=== PATIENT | female | born 1995 | race African-American/Black ===

== ENCOUNTER 2019-10-26 07:55 | Observation (INO) | payer OTHER ==
[~2019-10-26] VITALS: Ht 157.5 cm; Wt 88.9 kg
[2019-10-26] MEDS: LACTATED RINGERS 1,000 ML IV SCH ×2 (08:07→16:04)
[2019-10-26] MEDS ORDERED: APAP/BUTAL/CAFF 325/50/40 MG 1 TAB PO PRN (09:05)
[2019-10-26 10:20] VITALS: BP 124/79
[2019-10-26] MEDS ORDERED: PANTOPRAZOLE 40 MG TABEC PO SCH ×2 (11:22→21:00)
[2019-10-26 12:26] LABS: BASOPHILS % (AUTO) 0.3 % (0.0-2.0); EOSINOPHILS # (AUTO) 0.4 K/uL (0-0.4); EOSINOPHILS % (AUTO) 3.7 % (0.0-4.0); HEMATOCRIT 31.1 % (36-48); HEMOGLOBIN 9.7 g/dL (12.0-16.0); LYMPHOCYTES # (AUTO) 3.3 K/uL (2.5-16.5); LYMPHOCYTES % (AUTO) 27.3 % (20.5-51.1); MEAN CORPUSCULAR HEMOGLOBIN 25 pg (27-31); MEAN CORPUSCULAR HGB CONC 31 g/dL (33-37); MEAN CORPUSCULAR VOLUME 78.2 fL (80-94); MONOCYTES # (AUTO) 0.7 K/uL (0.8-1.0); MONOCYTES % (AUTO) 5.7 % (1.7-9.3); NEUTROPHILS # (AUTO) 7.6 K/uL (1.8-7.7); PLATELET COUNT (AUTO) 321 K/uL (140-450); RED BLOOD CELL COUNT(AUTO) 3.97 MIL/uL (4.20-5.40); RED CELL DISTRIBUTION WIDTH 18.8 % (11.6-13.7)
[2019-10-26 12:48] LABS: ANION GAP 12.8 (8-16); CREATININE 0.6 mg/dL (0.6-1.3); POTASSIUM 3.8 mmol/L (3.5-5.1); TOTAL BILIRUBIN 0.2 mg/dL (0.0-1.0)
[2019-10-26 12:49] LABS: ALBUMIN 2.6 g/dL (3.4-5.0)
[2019-10-26 13:12] LABS: APPEARANCE,URINE HAZY (CLEAR); BILIRUBIN,URINE NEGATIVE (NEGATIVE); BLOOD, URINE NEGATIVE (NEGATIVE); COLOR,URINE YELLOW (YELLOW); LEUKOCYTE ESTERASE ,URINE TRACE (NEGATIVE); NITRITE, URINE POSITIVE (NEGATIVE); UGLUCOSE NEGATIVE (NEGATIVE)
[2019-10-26 13:18] LABS: RBC,URINE NONE SEEN /HPF (0-5)
[2019-10-26 14:25] LABS: BARBITURATE, URINE NEGATIVE ng/ml (NEG <=200); BENZODIAZEPINE, URINE NEGATIVE ng/mL (NEG <=200); CANNABINOID, URINE NEGATIVE ng/mL (NEG <=50); COCAINE, URINE POSITIVE ng/mL (NEG <=300); OPIATE, URINE NEGATIVE ng/mL (NEG <=2000); PHENCYCLIDINE SCREEN,URINE NEGATIVE ng/mL (NEG <=25)
[2019-10-26] MEDS ORDERED: PREN-380 PO (17:05)
[2019-10-26] MEDS ORDERED: FERR-252 PO (17:05)
== END 2019-10-26 17:15 | disposition home or self-care (01) ==
LOC: MLD 07:55
PROVIDERS: ADMIT Obstetrics & Gynecology; ATTEND Obstetrics & Gynecology
DX: O26.892 Other specified pregnancy related conditions, second trimester (principal); R10.9 Unspecified abdominal pain; O99.212 Obesity complicating pregnancy, second trimester; O23.42 Unspecified infection of urinary tract in pregnancy, second trimester; O98.312 Other infections with a predominantly sexual mode of transmission complicating pregnancy, second trimester; O99.322 Drug use complicating pregnancy, second trimester; O21.2 Late vomiting of pregnancy; O24.419 Gestational diabetes mellitus in pregnancy, unspecified control; O99.012 Anemia complicating pregnancy, second trimester; F14.10 Cocaine abuse, uncomplicated; Z3A.23 23 weeks gestation of pregnancy; Z79.899 Other long term (current) drug therapy
CPT/HCPCS: 36415; 76805; 80053; 80305; 81001; 85025; 87086; 96361; 96365; G0378; J0696; J7060; J7120; Q0092

== ENCOUNTER 2019-12-02 23:40 | Observation (INO) | payer OTHER ==
[~2019-12-02] VITALS: Ht 157.5 cm; Wt 93.0 kg
[2019-12-02 22:25] VITALS: BP 126/58
[~2019-12-02 23:40] MED LIST: FERR-252 PO; PREN-380 PO
[2019-12-03] MEDS ORDERED: LACTATED RINGERS 1,000 ML IV SCH (00:15)
[2019-12-03] MEDS ORDERED: BUTORPHANOL 2 MG/ML VIAL IVP PRN (00:15)
[2019-12-03 00:35] LABS: BASOPHILS % (AUTO) 0.2 % (0.0-2.0); EOSINOPHILS # (AUTO) 0.4 K/uL (0-0.4); HEMATOCRIT 31.3 % (36-48); HEMOGLOBIN 9.7 g/dL (12.0-16.0); LYMPHOCYTES # (AUTO) 3.1 K/uL (2.5-16.5); LYMPHOCYTES % (AUTO) 21.5 % (20.5-51.1); MEAN CORPUSCULAR HEMOGLOBIN 24 pg (27-31); MEAN CORPUSCULAR HGB CONC 31 g/dL (33-37); MEAN CORPUSCULAR VOLUME 78.3 fL (80-94); MONOCYTES # (AUTO) 1.1 K/uL (0.8-1.0); MONOCYTES % (AUTO) 7.4 % (1.7-9.3); NEUTROPHILS # (AUTO) 9.8 K/uL (1.8-7.7); NEUTROPHILS % (AUTO) 67.9 % (42.2-75.2); PLATELET COUNT (AUTO) 291 K/uL (140-450); RED CELL DISTRIBUTION WIDTH 16.7 % (11.6-13.7); WHITE BLOOD COUNT (AUTO) 14.5 K/uL (4.8-10.8)
[2019-12-03 00:49] LABS: ALBUMIN 2.8 g/dL (3.4-5.0); ANION GAP 8.3 (8-16); CARBON DIOXIDE 28.6 mmol/L (21-32); CREATININE 0.7 mg/dL (0.6-1.3); POTASSIUM 3.9 mmol/L (3.5-5.1); TOTAL BILIRUBIN 0.1 mg/dL (0.0-1.0)
[2019-12-03 03:47] LABS: APPEARANCE,URINE CLEAR (CLEAR); BILIRUBIN,URINE NEGATIVE (NEGATIVE); BLOOD, URINE NEGATIVE (NEGATIVE); COLOR,URINE YELLOW (YELLOW); LEUKOCYTE ESTERASE ,URINE 1+ (NEGATIVE); NITRITE, URINE NEGATIVE (NEGATIVE); UGLUCOSE NEGATIVE (NEGATIVE)
[2019-12-03 05:08] LABS: RBC,URINE 0-5 /HPF (0-5)
[2019-12-03 06:27] LABS: BENZODIAZEPINE, URINE NEG. ng/mL (NEG <=200); CANNABINOID, URINE POS. ng/mL (NEG <=50); COCAINE, URINE NEG. ng/mL (NEG <=300); OPIATE, URINE NEG. ng/mL (NEG <=2000); PHENCYCLIDINE SCREEN,URINE NEG. ng/mL (NEG <=25)
[2019-12-03 06:33] LABS: BARBITURATE, URINE NEG. ng/ml (NEG <=200)
[2019-12-03] MEDS ORDERED: ONDANSETRON 4 MG/2 ML VIAL IVP PRN (06:40)
[2019-12-03] MEDS ORDERED: ACETAMINOPHEN 325 MG TAB PO PRN (06:45)
[2019-12-03] MEDS ORDERED: cefTRIAXone 1,000 MG VIAL ONE (08:10)
[2019-12-03] MEDS ORDERED: oxyCODONE/APAP 5/325 MG 1 TAB TAB PO PRN ×2 (09:15→09:25)
[2019-12-03] MEDS ORDERED: oxyCODONE/APAP 5/325 MG 1 TAB TAB ONE (09:18)
[2019-12-03] MEDS: oxyCODONE/APAP 5/325 MG 1 TAB TAB PO PRN ×2 (15:47→23:17)
--- NOTE | 2019-12-03 16:08 | NUR ---
PATIENT HAS BEEN SCREENED AND CATEGORIZED LOW NUTRITION RISK. PATIENT WILL BE SEEN WITHIN 7 DAYS OF ADMISSION. 12/09/[address]
[2019-12-03] MEDS: NACL 0.9% 1,000 ML IV SCH (18:32)
[2019-12-03] MEDS: ONDANSETRON 8 MG in NACL 0.9% 50 ML IVP PRN (18:42)
[2019-12-04] MEDS: NACL 0.9% 1,000 ML IV SCH ×4 (03:47→20:25)
[2019-12-04 07:06] LABS: BASOPHILS # (AUTO) 0.1 K/uL (0.00-0.22); BASOPHILS % (AUTO) 0.9 % (0.0-2.0); EOSINOPHILS # (AUTO) 0.4 K/uL (0-0.4); HEMATOCRIT 29.4 % (36-48); HEMOGLOBIN 9.3 g/dL (12.0-16.0); LYMPHOCYTES # (AUTO) 2.9 K/uL (2.5-16.5); LYMPHOCYTES % (AUTO) 27.8 % (20.5-51.1); MEAN CORPUSCULAR HEMOGLOBIN 25 pg (27-31); MEAN CORPUSCULAR HGB CONC 32 g/dL (33-37); MONOCYTES # (AUTO) 0.6 K/uL (0.8-1.0); MONOCYTES % (AUTO) 5.7 % (1.7-9.3); NEUTROPHILS # (AUTO) 6.4 K/uL (1.8-7.7); NEUTROPHILS % (AUTO) 61.6 % (42.2-75.2); PLATELET COUNT (AUTO) 224 K/uL (140-450); RED BLOOD CELL COUNT(AUTO) 3.73 MIL/uL (4.20-5.40); RED CELL DISTRIBUTION WIDTH 17.2 % (11.6-13.7); WHITE BLOOD COUNT (AUTO) 10.4 K/uL (4.8-10.8)
[2019-12-04] MEDS: oxyCODONE/APAP 5/325 MG 1 TAB TAB PO PRN (17:06)
[2019-12-04] MEDS: ONDANSETRON 8 MG in NACL 0.9% 50 ML IVP PRN (21:11)
== END 2019-12-04 23:00 | disposition home or self-care (01) ==
LOC: MLD 23:40
PROVIDERS: ADMIT Obstetrics & Gynecology; ATTEND Obstetrics & Gynecology
DX: O26.893 Other specified pregnancy related conditions, third trimester (principal); R10.32 Left lower quadrant pain; R51 Headache; O99.89 Other specified diseases and conditions complicating pregnancy, childbirth and the puerperium; M54.5 Low back pain; O99.323 Drug use complicating pregnancy, third trimester; F12.90 Cannabis use, unspecified, uncomplicated; Z02.89 Encounter for other administrative examinations; Z87.448 Personal history of other diseases of urinary system; Z86.59 Personal history of other mental and behavioral disorders; Z3A.28 28 weeks gestation of pregnancy
CPT/HCPCS: 36415; 76770; 76805; 80053; 80305; 81001; 85025; 85384; 87086; 96365; 96366; 96375; 96376; C1758; G0378; J0595; J0696; J2405; J7060; Q0092; J7120

== ENCOUNTER 2021-07-09 12:09 | Observation (INO) | payer OTHER, SELFPAY ==
[~2021-07-09] VITALS: Ht 157.5 cm; Wt 96.2 kg
[~2021-07-09 12:09] MED LIST changes: +PREN-371 PO; -PREN-380 PO
[2021-07-09] MEDS ORDERED: METHYLERGONOVINE 0.2 MG/ML AMP IM PRN (12:35)
[2021-07-09] MEDS ORDERED: LACTATED RINGERS 500 ML IV SCH (12:35)
[2021-07-09] MEDS: LACTATED RINGERS 1,000 ML IV SCH ×2 (12:35→20:33)
[2021-07-09] MEDS ORDERED: CARBOPROST 250 MCG/ML AMP IM PRN (12:35)
[2021-07-09] MEDS: ONDANSETRON 4 MG/2 ML VIAL IVP PRN ×2 (13:15→20:29)
[2021-07-09] MEDS: MORPHINE SULFATE 10 MG/ML VIAL IVP PRN ×2 (13:17→20:31)
[2021-07-09 13:21] LABS: BASOPHILS % (AUTO) 0.2 % (0.0-2.0); EOSINOPHILS # (AUTO) 0.2 K/uL (0-0.4); EOSINOPHILS % (AUTO) 2.1 % (0.0-4.0); HEMATOCRIT 30.9 % (36-48); HEMOGLOBIN 9.7 g/dL (12.0-16.0); LYMPHOCYTES # (AUTO) 2.3 K/uL (2.5-16.5); LYMPHOCYTES % (AUTO) 20.9 % (20.5-51.1); MEAN CORPUSCULAR HEMOGLOBIN 24 pg (27-31); MEAN CORPUSCULAR HGB CONC 31 g/dL (33-37); MEAN CORPUSCULAR VOLUME 74.8 fL (80-94); MONOCYTES # (AUTO) 0.8 K/uL (0.8-1.0); MONOCYTES % (AUTO) 6.8 % (1.7-9.3); NEUTROPHILS # (AUTO) 7.7 K/uL (1.8-7.7); PLATELET COUNT (AUTO) 318 K/uL (140-450); RED BLOOD CELL COUNT(AUTO) 4.13 MIL/uL (4.20-5.40)
[2021-07-09 13:22] LABS: APPEARANCE,URINE HAZY (CLEAR); BILIRUBIN,URINE NEGATIVE (NEGATIVE); BLOOD, URINE NEGATIVE (NEGATIVE); COLOR,URINE YELLOW (YELLOW); LEUKOCYTE ESTERASE ,URINE 1+ (NEGATIVE); NITRITE, URINE NEGATIVE (NEGATIVE); PH,URINE 5.5 (5.0-9.0); UGLUCOSE NEGATIVE (NEGATIVE)
[2021-07-09 13:41] LABS: ALBUMIN 2.5 g/dL (3.4-5.0); ANION GAP 15.7 (8-16); CARBON DIOXIDE 23.3 mmol/L (21-32); CREATININE 0.6 mg/dL (0.6-1.3); TOTAL BILIRUBIN 0.2 mg/dL (0.0-1.0)
[2021-07-09 13:48] LABS: RBC,URINE 0-5 /HPF (0-5)
[2021-07-09 13:51] LABS: BARBITURATE, URINE NEGATIVE ng/ml (NEG <=200); BENZODIAZEPINE, URINE NEGATIVE ng/mL (NEG <=200); CANNABINOID, URINE NEGATIVE ng/mL (NEG <=50); COCAINE, URINE NEGATIVE ng/mL (NEG <=300); OPIATE, URINE NEGATIVE ng/mL (NEG <=2000); PHENCYCLIDINE SCREEN,URINE NEGATIVE ng/mL (NEG <=25)
[2021-07-09] MEDS ORDERED: NALBUPHINE 10 MG/ML AMP IVP PRN (16:00)
[2021-07-09] MEDS ORDERED: NALBUPHINE 10 MG/ML AMP ONE (16:01)
[2021-07-09] MEDS ORDERED: diphenhydrAMINE 50 MG/ML VIAL ONE (16:35)
[2021-07-09] MEDS ORDERED: diphenhydrAMINE 50 MG/ML VIAL IVP SCH (16:37)
[2021-07-09 20:31] VITALS: BP 115/83
== END 2021-07-09 22:40 | disposition home or self-care (01) ==
LOC: MLD 12:09
PROVIDERS: ADMIT Obstetrics & Gynecology; ATTEND Obstetrics & Gynecology
DX: O26.893 Other specified pregnancy related conditions, third trimester (principal); R10.9 Unspecified abdominal pain; Z20.822 Contact with and (suspected) exposure to COVID-19; O13.3 Gestational [pregnancy-induced] hypertension without significant proteinuria, third trimester; O99.013 Anemia complicating pregnancy, third trimester; D64.9 Anemia, unspecified; Z3A.38 38 weeks gestation of pregnancy; Z79.899 Other long term (current) drug therapy
CPT/HCPCS: 36415; 59025; 76805; 80053; 80305; 81001; 85025; 85384; 86592; 86886; 86900; 86901; 87086; 87653-90; 96361; 96374; 96375; 96376; C1758; G0378; G0379; J1200; J2270; J2300; J2405; Q0092

== ENCOUNTER 2021-07-10 13:23 | Inpatient (IN) | payer OTHER ==
[~2021-07-10] VITALS: Ht 157.5 cm; Wt 98.4 kg
[2021-07-10] MEDS ORDERED: ONDANSETRON 4 MG/2 ML VIAL IVP PRN (14:00)
[2021-07-10] MEDS ORDERED: OXYTOCIN 20 UNITS in LACTATED RINGERS 1,000 ML IV SCH (14:00)
[2021-07-10] MEDS: LACTATED RINGERS 1,000 ML IV SCH ×2 (14:30→15:51)
[2021-07-10 14:33] VITALS: BP 125/57
[2021-07-10] MEDS ORDERED: OXYTOCIN 20 UNITS/LR PREMIX 1,000 ML IV ONE (15:15)
[2021-07-10 15:26] LABS: APPEARANCE,URINE HAZY (CLEAR); BILIRUBIN,URINE NEGATIVE (NEGATIVE); BLOOD, URINE NEGATIVE (NEGATIVE); COLOR,URINE YELLOW (YELLOW); LEUKOCYTE ESTERASE ,URINE 1+ (NEGATIVE); NITRITE, URINE NEGATIVE (NEGATIVE); PH,URINE 5.5 (5.0-9.0); UGLUCOSE NEGATIVE (NEGATIVE)
[2021-07-10 15:38] LABS: BARBITURATE, URINE NEGATIVE ng/ml (NEG <=200); BENZODIAZEPINE, URINE NEGATIVE ng/mL (NEG <=200); CANNABINOID, URINE NEGATIVE ng/mL (NEG <=50); COCAINE, URINE POSITIVE ng/mL (NEG <=300); OPIATE, URINE POSITIVE ng/mL (NEG <=2000); PHENCYCLIDINE SCREEN,URINE NEGATIVE ng/mL (NEG <=25)
[2021-07-10] MEDS ORDERED: ROPIVACAINE 0.2%/NS PREMIX 200 ML EPI ONE (15:38)
[2021-07-10 15:49] LABS: RBC,URINE 0-5 /HPF (0-5); WBC,URINE 16-25 (MOD) /HPF (0-5)
[2021-07-10 15:53] LABS: URINE TOTAL PROTEIN 37.6 mg/dL (0-12)
[2021-07-10] MEDS ORDERED: ACETAMINOPHEN 325 MG TAB ONE (16:23)
[2021-07-10] MEDS: ACETAMINOPHEN 325 MG TAB PO PRN (16:29)
[2021-07-10 18:56] LABS: BASOPHILS % (AUTO) 0.1 % (0.0-2.0); EOSINOPHILS # (AUTO) 0.2 K/uL (0-0.4); EOSINOPHILS % (AUTO) 1.8 % (0.0-4.0); HEMATOCRIT 28.8 % (36-48); HEMOGLOBIN 8.9 g/dL (12.0-16.0); MEAN CORPUSCULAR HEMOGLOBIN 23 pg (27-31); MEAN CORPUSCULAR HGB CONC 31 g/dL (33-37); MEAN CORPUSCULAR VOLUME 74.2 fL (80-94); MONOCYTES # (AUTO) 0.8 K/uL (0.8-1.0); NEUTROPHILS # (AUTO) 8.1 K/uL (1.8-7.7); NEUTROPHILS % (AUTO) 73.1 % (42.2-75.2); PLATELET COUNT (AUTO) 278 K/uL (140-450); RED BLOOD CELL COUNT(AUTO) 3.88 MIL/uL (4.20-5.40); RED CELL DISTRIBUTION WIDTH 18.7 % (11.6-13.7)
[2021-07-10 19:08] LABS: ALBUMIN 2.2 g/dL (3.4-5.0); ANION GAP 12.2 (8-16); CARBON DIOXIDE 23.9 mmol/L (21-32); CREATININE 0.7 mg/dL (0.6-1.3); POTASSIUM 4.1 mmol/L (3.5-5.1); TOTAL BILIRUBIN 0.1 mg/dL (0.0-1.0)
[2021-07-11] MEDS: LACTATED RINGERS 1,000 ML IV SCH ×2 (00:17→10:04)
[2021-07-11] MEDS: ACETAMINOPHEN 325 MG TAB PO PRN ×2 (03:00→08:44)
--- NOTE | 2021-07-11 06:35 | NUR ---
PATIENT HAS BEEN SCREENED AND CATEGORIZED LOW NUTRITION RISK. PATIENT WILL BE SEEN WITHIN 7 DAYS OF ADMISSION. 07/17/[address]
[2021-07-11] MEDS ORDERED: ROPIVACAINE 0.2%/NS PREMIX 200 ML EPI ONE (09:24)
[2021-07-11] MEDS ORDERED: MORPHINE SULFATE 10 MG/ML VIAL ONE (11:31)
[2021-07-11 11:35] VITALS: BP 139/86
[2021-07-11] MEDS ORDERED: MORPHINE SULFATE 10 MG/ML VIAL IVP PRN (11:40)
[2021-07-11] MEDS ORDERED: IBUPROFEN 800 MG TAB ONE (15:12)
[2021-07-11] MEDS ORDERED: METHYLERGONOVINE 0.2 MG/ML AMP IM PRN (15:15)
[2021-07-11] MEDS ORDERED: IBUPROFEN 800 MG TAB PO PRN (15:15)
[2021-07-11] MEDS ORDERED: OXYTOCIN 10 UNITS/ML VIAL IM PRN (15:15)
[2021-07-11] MEDS ORDERED: BENZOCAINE/MENTHOL 20%-0.5% 60 GM CAN TP PRN (15:15)
[2021-07-11] MEDS ORDERED: METHYLERGONOVINE 0.2 MG TAB PO PRN (15:15)
[2021-07-11] MEDS ORDERED: ACETAMINOPHEN EXTRA STRENGTH 500 MG TAB ONE (16:24)
[2021-07-11] MEDS: ACETAMINOPHEN EXTRA STRENGTH 500 MG TAB PO PRN ×2 (16:37→22:36)
[2021-07-12] MEDS ORDERED: HYDROcodone/APAP 5/325 MG 1 TAB TAB PO PRN ×2 (01:55→06:15)
[2021-07-12 06:36] LABS: HEMATOCRIT 27.7 % (36-48); HEMOGLOBIN 8.7 g/dL (12.0-16.0)
--- NOTE | 2021-07-12 10:30 | NUR ---
SW MET WITH PATIENT AT BEDSIDE TO DISCUSS AVAILABLE SERVICES AND RESOURCES FOR COUNSELING AND SUBSTANCE ABUSE. DURING THE VISIT WITH PATIENT SHE WAS AWAKE AND AWARE HOLDING BABY ON ARMS PATIENT SEEM UPSET. PATIENT REPORTED FEELING UPSET COMPLAINING OF CPS/CHIEF SALES OFFICER COMING TO SEE HER AT [facility] AND WAKING HER UP AT ABOUT 4:00AM TO DISCUSS HER AND BABY POSITIVE TEST RESULT WITH OPIOIDS/COCAINE. PER PATIENT SHE DENIED HER USE OF SUBSTANCE AND STATED THAT SHE TOLD CHIEF SALES OFFICER TO RE-TEST HER BECAUSE SHE HAS NOT USE ANY SUBSTANCES FOR ABOUT A YEAR. PATIENT REPORTED HAVING HX. OF CPS/ DUE TO HER PREVIOUS SUBSTANCE ABUSE INVOLVEMENT AND STATED " THAT BECAUSE SHE HAS HX. SHE STATED " SHE IS BEEN FRAME" SW EDUCATED PATIENT OF THE PROCESS OF CARE AND THE TESTING REQUIRED AT [facility] TO ASSURE BABY AND MOTHER CARE IS APPROPRIATE WHILE HOSPITALIZED. DISCUSSED THE TEST RESULTS AND CPS SYSTEM. SW ACKNOWLEDGED PATIENT'S CONCERNS, AND STATEMENTS ABOUT CPS SYSTEM AND ENCOURAGE PATIENT TO WORK TOGETHER WITH CPS/CHIEF SALES OFFICER TO ASSIST HER GET THE SERVICES NEEDED FOR HER, HER BABY AND OTHER CHILDREN AT HOME. PATIENT ACCEPTED RESOURCES AND STATED THAT SHE WILL COMPLY WITH CPS REQUIREMENTS. AT ABOUT 11:30 SW WAS PRESENT DURING CPS/CHIEF SALES OFFICER ARRIVED WITH ELLA Benavidez WITH COURT ORDER TO DETAIN NEW BORN BABY FROM MOTHER. MOTHER WAS NOT COOPERATIVE AT FIRST WHILE HOLDING BABY ON HER ARMS. SHE WAS REFUSING TO GIVE BABY TO [facility] STAFF OR CPS/CHIEF SALES OFFICER. SHE WAS CRYING UPSET UNTIL FINALLY AGREED TO GIVE BABY AND CPS/CHIEF SALES OFFICER TALK TO HER ABOUT FOLLOWING INSTRUCTIONS GIVEN TO FOLLOW UP WITH HER CASE AND ASSIGN CPS/CHIEF SALES OFFICER. BABY WAS REMOVED FROM THE ROOM SAFELY AND PATIENT WAS GIVEN PRIVACY TO REGROUP AND BE READY TO DISCUSS DC. WITH [facility] RN.
== END 2021-07-12 13:35 | disposition left against medical advice (07) | DRG 560 ==
LOC: MLD 13:23 → MFCC 07-11 18:05
PROVIDERS: ADMIT Obstetrics & Gynecology; ATTEND Obstetrics & Gynecology
PROC: 10E0XZZ Delivery of Products of Conception, External Approach (ICD-10-PCS; principal; 2021-07-11)
PROC: 3E033VJ Introduction of Other Hormone into Peripheral Vein, Percutaneous Approach (ICD-10-PCS; 2021-07-11)
PROC: 3E0R3BZ Introduction of Anesthetic Agent into Spinal Canal, Percutaneous Approach (ICD-10-PCS; 2021-07-11)
PROC: 00HU33Z Insertion of Infusion Device into Spinal Canal, Percutaneous Approach (ICD-10-PCS; 2021-07-11)
PROC: 0HQ9XZZ Repair Perineum Skin, External Approach (ICD-10-PCS; 2021-07-11)
DX: O13.4 Gestational [pregnancy-induced] hypertension without significant proteinuria, complicating childbirth (principal); Z37.0 Single live birth; O24.92 Unspecified diabetes mellitus in childbirth; O69.81X0 Labor and delivery complicated by cord around neck, without compression, not applicable or unspecified; O99.324 Drug use complicating childbirth; O99.52 Diseases of the respiratory system complicating childbirth; J45.909 Unspecified asthma, uncomplicated; F14.90 Cocaine use, unspecified, uncomplicated; O90.81 Anemia of the puerperium; D64.9 Anemia, unspecified; O70.0 First degree perineal laceration during delivery; Z88.8 Allergy status to other drugs, medicaments and biological substances; Z91.018 Allergy to other foods; Z3A.38 38 weeks gestation of pregnancy; Z86.73 Personal history of transient ischemic attack (TIA), and cerebral infarction without residual deficits
CPT/HCPCS: 36415; 51702; 59409; 72131; 80053; 80305; 81001; 82570; 84550; 85018; 85025; 85384; 87086; J2270; J2405; J2590; J2795